=== PATIENT | female | born 1965 | race Caucasian/White ===

== ENCOUNTER 2016-09-03 15:31 | Emergency (ER) | payer OTHER ==
[2016-09-03 15:39] VITALS: BP 116/87; PULSE 67; RESP 16; TEMP 98.4; O2SAT 95
--- NOTE | 2016-09-03 15:56 | EDPHY ---
HPI/HX/ROS/PE/MDM Narrative: CHIEF COMPLAINT: Hearing changes, fall HPI: The patient is a 51 y/o female arriving with her family complaining of waxing and waning hearing loss since a fall while cross country skiing on Tuesday, 6 days ago. She fell backwards onto her pelvis and denies loss of consciousness or other injuries from the fall. She has a history of an L1-S5 fusion and says sometimes with injuries to her spine she gets ringing in her ears, which she developed after this fall. She says by Tuesday, she determined she actually was experienced hearing loss and was evaluated by her PCP. Her neuro exam during that visit was normal. She saw an osteopath yesterday who did "several adjustments" to her spine and the patient reports her hearing improved. Today she again felt like she had hearing loss worse in the left ear that was worsening. She also complains of associated headache, trouble focusing , and fatigue. She denies other pertinent medical history. REVIEW OF SYSTEMS: Aside from elements discussed in the HPI, a comprehensive 10-point review of systems was reviewed and is negative. PMH: L1-S5 fusion 4 years ago SOCIAL HISTORY: Family at bedside PCP: Dr. Julio PHYSICAL EXAM: General:Patient is alert, in no acute distress. ENT:Eyes are normal to inspection. EOMI. ENT inspection normal. TMs normal bilaterally Neck: Normal inspection. Full range of motion. Respiratory:No respiratory distress. Breath sounds normal bilaterally. Cardiovascular: Regular rate and rhythm. Strong peripheral pulses. Normal cap refill. Abdomen:The abdomen is nontender to palpation. There are no peritoneal signs. There are normal bowel sounds. Back: Normal to inspection. No tenderness to palpation. Skin: Normal color. No rash. Warm and dry. Extremities: Normal appearance. Full range of motion. Neuro: Oriented x3. Normal motor function. Normal sensory function. Normal [id number]. No pronator drift. ED Course: Study: CT of the Head Indication: Hearing changes after fall Results: CT scan of the head was obtained. The results of the study are negative. The study was read by the radiologist, Dr. Zhu. I viewed the images myself on the PACS system. 1620: I discussed imaging results with the patient. I recommended following up with her PCP next week. Return precautions given. She is comfortable with this plan. MDM: This patient presents with unilateral hearing loss which she was concerned was secondary to a fall that took place sometime ago. Her CT is negative for skull fracture, tumor or bleed. She has a normal neurologic exam and no external signs of trauma. The etiology of her hearing loss is unclear, but I see no evidence of traumatic emergency here in the emergency department. She will need close follow up with her primary care physician for additional workup. I see no signs of otitis media, cerumen impaction, tumor, subarachnoid hemorrhage or skull fracture General Time Seen by Provider: 09/03/16 15:37 Initial Vital Signs: Initial Vital Signs Temperature (C) 36.9 C 09/03/16 15:36 Heart Rate 67 09/03/16 15:36 Respiratory Rate 16 09/03/16 15:36 Blood Pressure 116/87 H 09/03/16 15:36 O2 Sat (%) 95 09/03/16 15:36 O2 Delivery Mode Room Air Allergies/Adverse Reactions: nickel [Nickel] Allergy (Intermediate, Verified 09/03/16 15:40) Rash Home Medications: Medication Instructions Recorded Homeopathic Thyroid 09/03/16 Departure - Departure Disposition: Home, Routine, Self-Care Clinical Impression: Perceived hearing changes Minor head injury Qualifiers: Encounter type: initial encounter Qualifier Code: (S00.90XA) Unspecified superficial injury of unspecified part of head, initial encounter Condition: Good Instructions: Hearing Loss (ED) Additional Instructions: Follow up with your primary care provider next week for symptoms not improved. Return to the ED for worsening of condition. Referrals: KELLEN JULIO [Primary Care Provider] - As per Instructions Report Scribed for: Gordo Cooley Report Scribed by: Celia Francisco Date of Report: 09/03/16 Time of Report: 15:49 Physician Review and Approval Statement: Portions of this note were transcribed by an ED scribe. I personally performed the history, physical exam, and medical decision making; and confirm the accuracy of the information in the transcribed note.
--- NOTE | 2016-09-03 16:34 | CT ---
CT Head, Without Contrast History: Fall cross-country skiing six days ago, unable to hear from left ear. Technique: Axial unenhanced images were obtained from the vertex through the skull base. Dose reduc tion techniques were utilized. Comparison: None available. Findings: Valerio-white differentiation is preserved. The ventricles and sulci are normal. No intracr anial hemorrhage is identified. No extraaxial fluid collections are identified. There is no mass ef fect or evidence of infarct. The skull and skull base are unremarkable. There is no visible fractur e. The ossicles appear normally positioned. The visible paranasal sinuses and mastoid air cells are normally aerated. Impression: No acute intracranial findings, with no visible etiology for the patient's symptoms. Findings discussed with Dr. Gordo Cooley on September 03, 2016 at 1620 hours.
== END 2016-09-03 16:27 | disposition home or self-care (01) ==
DX: S09.90XA Unspecified injury of head, initial encounter (principal); H91.90 Unspecified hearing loss, unspecified ear; W19.XXXA Unspecified fall, initial encounter

== ENCOUNTER → 2016-09-30 | Outpatient (CLI) | payer OTHER | LOC: FIMAGING 08:20 | DX: Z12.31 Encounter for screening mammogram for malignant neoplasm of breast (principal) | CPT/HCPCS: G0202 ==

== ENCOUNTER → 2018-01-24 | Outpatient (CLI) | payer OTHER | LOC: FIMAGING 10:01 | PROVIDERS: ATTEND Obstetrics & Gynecology | DX: Z12.31 Encounter for screening mammogram for malignant neoplasm of breast (principal) ==

== ENCOUNTER 2019-01-15 23:37 | Emergency (ER) | payer OTHER | END 2019-01-16 00:12 | disposition home or self-care (01) ==